=== PATIENT | female | born 1965 | race Caucasian/White ===

== ENCOUNTER → 2019-10-02 13:12 | Outpatient (CLI) | payer OTHER, SELFPAY ==
--- NOTE | 2019-10-02 13:13 | DI.MG.S_ITS ---
BILATERAL DIGITAL SCREENING MAMMOGRAM 3D/2D WITH CAD: 10/02/2019 CLINICAL: Routine screening. Family history of breast cancer. Comparison is made to exams dated: 10/16/2017 mammogram, 06/04/2014 mammogram, and 02/07/2013 mammogram - [facility]. The tissue of both breasts is extremely dense, which lowers the sensitivity of mammography. Current study was also evaluated with a Computer Aided Detection (CAD) system. No significant masses, calcifications, or other findings are seen in either breast. There has been no significant interval change. IMPRESSION: NEGATIVE There is no mammographic evidence of malignancy. A 1 year screening mammogram is recommended. This exam was interpreted at Station ID: [id number]. NOTE: For mammograms, a report in lay terms will be sent to the patient. Approximately 15% of breast malignancies will not be visualized mammographically. In the management of a palpable breast mass, a negative mammogram must not discourage biopsy of a clinically suspicious lesion. Electronically Signed By: Lj liao/bennie:10/02/2019 13:42:00 letter sent: Normal Exam ACR BI-RADS Category 1: Negative 3341F
== END ==
PROVIDERS: PCP Family Medicine; Referring Provider Family Medicine; Visit Provider Family Medicine
DX: Z12.31 Encounter for screening mammogram for malignant neoplasm of breast (principal); Z80.3 Family history of malignant neoplasm of breast
CPT/HCPCS: 77063; 77067

== ENCOUNTER → 2020-06-06 09:58 | Outpatient (CLI) | payer OTHER, SELFPAY ==
[2020-06-06 10:19] LABS: Add Manual Diff / Slide Review NO; Basophils Absolute Auto 0 /uL (0-100); Eosinophils Absolute Auto 100 /uL (0-450); Eosinophils Percent Auto 3.3 % (2-4); Hematocrit 36.1 % (36-46); Hemoglobin 12.4 g/dL (12.0-16.0); Lymphocytes Absolute Auto 1100 /uL (1100-4500); Lymphocytes Percent Auto 28.7 % (25-40); Mean Corpuscular HGB Conc 34.4 % (30-36); Mean Corpuscular Hemoglobin 30.7 PG (26-34); Mean Corpuscular Volume 89.3 fL (80-100); Monocytes Absolute Auto 300 /uL (0-900); Monocytes Percent Auto 8.8 % (3-14); Neutrophils Absolute Auto 2200 /uL (1500-7000); Neutrophils Percent Auto 58.2 % (50-75); Platelet Count 192 X10^3/uL (150-400); Red Blood Cell Count 4.05 X10^6/uL (4.0-5.2); Red Cell Distribution Width 12.8 % (11.6-14.8); White Blood Cell Count 3.8 X10^3/uL (4.5-11.0)
[2020-06-06 10:40] LABS: Alanine Aminotransferase 488 IU/L (<35); Albumin 4.2 g/dL (3.5-5.0); Albumin Globulin Ratio 1.5 (1.0-2.8); Alkaline Phosphatase 117 U/L (38-126); Aspartate Aminotransferase 275 IU/L (14-36); BUN Creatinine Ratio 21.9 (6-22); Bilirubin Total 0.7 mg/dL (0.2-1.3); Blood Urea Nitrogen 16 mg/dL (7-17); Calcium 9.2 mg/dL (8.4-10.2); Carbon Dioxide 30 mmol/L (22-32); Chloride 105 mmol/L (98-107); Cholesterol 189 mg/dL (140-199); Estimated Glomerular Filt Rate > 60.0 mL/min (>60); Globulin 2.8 g/dL (1.7-4.1); Glucose 96 mg/dL (70-100); HDL Cholesterol 45 mg/dL (40-60); HEMOLYSIS < 15 (0-50); LDL Cholesterol Calculated 123 mg/dL (<100); Potassium 4.4 mmol/L (3.4-5.1); Sodium 137 mmol/L (137-145); Triglycerides 106 mg/dL (35-150)
[2020-06-06 11:11] LABS: TSH w/ Reflex to FT4 0.67 uIU/mL (0.47-4.68)
== END ==
PROVIDERS: PCP Family Medicine; Referring Provider Family Medicine; Visit Provider Family Medicine
DX: Z13.220 Encounter for screening for lipoid disorders (principal)
CPT/HCPCS: 36415; 80053; 80061; 84443; 85025

== ENCOUNTER → 2020-06-10 07:42 | Outpatient (CLI) | payer OTHER, SELFPAY ==
--- NOTE | 2020-06-10 07:42 | DI.US.S_ITS ---
PROCEDURE: US ABDOMEN LIMITED INDICATIONS: elevated LFT's TECHNIQUE: Real-time scanning was performed of the abdominal and retroperitoneal organs, with image documentation. COMPARISON: None. FINDINGS: Liver: The liver measures 13.3 cm in length and demonstrates slightly increased echogenicity. Gallbladder: The gallbladder wall measures 8 mm in diameter. No stones, sludge, pericholecystic fluid, or sonographic Jason sign. Biliary ducts: Intrahepatic bile ducts are non-dilated. Extrahepatic bile duct caliber measures 2.5 mm. Normal is 6-7 mm or less in diameter, or 10 mm or less post-cholecystectomy. Pancreas: Visualized portions of the pancreas are sonographically normal. Kidneys: There is a simple 1.6 cm midpole right renal cyst. IMPRESSION: 1. No cholelithiasis or findings to suggest choledocholithiasis or acute cholecystitis. 2. Mildly increased hepatic echogenicity noted likely related to fatty infiltration of the liver but other sources of hepatocellular disease cannot be excluded. Dictated by: Lisy Rico M.D. on 06/10/2020 at 10:34 Approved by: Lisy Rico M.D. on 06/10/2020 at 10:37
== END ==
PROVIDERS: PCP Family Medicine; Referring Provider Family Medicine; Visit Provider Family Medicine
DX: R94.5 Abnormal results of liver function studies (principal)
CPT/HCPCS: 76705

== ENCOUNTER → 2020-06-11 13:27 | Outpatient (CLI) | payer OTHER, SELFPAY ==
[2020-06-11 13:34] LABS: Bacteria Urine None Seen; RBC Urine None Seen (0-5/HPF); WBC Urine None Seen (0-5/HPF)
[2020-06-11 15:44] LABS: Appearance Urine UA CLEAR; Bilirubin Urine UA NEGATIVE (NEGATIVE); Color Urine UA YELLOW; Glucose Urine UA NEGATIVE (Negative); Ketones Urine UA NEGATIVE (NEGATIVE); Leukocyte Esterase Urine UA NEGATIVE (NEGATIVE); Nitrite Urine UA NEGATIVE (Negative); Occult Blood Urine UA TRACE-LYSED (Negative); Protein Urine UA NEGATIVE (Negative); Urobilinogen Urine UA 0.2 E.U./dL (0.2)
[2020-06-11 15:47] LABS: pH Urine UA 6.5 (4.5-8.0)
[2020-06-11 15:49] LABS: Culture Indicated Urine Cult Not Indicated; Urine Comments Microscopic Normal
[2020-06-11 15:50] LABS: C-Reactive Protein Quant < 0.5 mg/dL (<1.0)
[2020-06-11 15:53] LABS: Erythrocyte Sedimentation Rate 10 MM/HR (0-20)
[2020-06-11 16:21] LABS: Ferritin 248 ng/mL (11-264)
[2020-06-12 04:05] LABS: Alpha 1 Anti Trypsin 164 mg/dL (101-187)
[2020-06-12 06:00] LABS: HBsAg Screen Negative (Negative); Hepatitis A Antibody IgM Negative (Negative); Hepatitis B Core Antibody IgM Negative (Negative); Hepatitis C Antibody <0.1 s/co ratio (0.0-0.9)
[2020-06-12 16:07] LABS: ANA Screen, IFA Negative (.)
== END ==
PROVIDERS: PCP Family Medicine; Referring Provider Family Medicine; Visit Provider Family Medicine
DX: B17.9 Acute viral hepatitis, unspecified (principal)
CPT/HCPCS: 36415; 80074; 81001; 82103; 82390; 82728; 85651; 86038; 86140

== ENCOUNTER → 2020-06-23 11:36 | Outpatient (CLI) | payer OTHER, SELFPAY ==
[2020-06-23 13:35] LABS: Alanine Aminotransferase 181 IU/L (<35); Albumin Globulin Ratio 2.1 (1.0-2.8); Alkaline Phosphatase 92 U/L (38-126); Aspartate Aminotransferase 78 IU/L (14-36); Bilirubin Total 0.6 mg/dL (0.2-1.3); Bilirubin Unconjugated 0.6 mg/dL (0.0-1.1); Globulin 1.9 g/dL (1.7-4.1); HEMOLYSIS < 15 (0-50); Total Protein 5.9 g/dL (6.3-8.2)
== END ==
PROVIDERS: PCP Family Medicine; Referring Provider Family Medicine; Visit Provider Family Medicine
DX: R79.89 Other specified abnormal findings of blood chemistry (principal)
CPT/HCPCS: 36415; 80076

== ENCOUNTER → 2020-09-04 13:22 | Outpatient (CLI) | payer OTHER, SELFPAY ==
[2020-09-04 15:12] LABS: Alanine Aminotransferase 74 IU/L (<35); Albumin 4.2 g/dL (3.5-5.0); Albumin Globulin Ratio 1.7 (1.0-2.8); Alkaline Phosphatase 75 U/L (38-126); Aspartate Aminotransferase 73 IU/L (14-36); Bilirubin Total 0.3 mg/dL (0.2-1.3); Bilirubin Unconjugated 0.4 mg/dL (0.0-1.1); Globulin 2.5 g/dL (1.7-4.1); HEMOLYSIS < 15 (0-50); Total Protein 6.7 g/dL (6.3-8.2)
== END ==
PROVIDERS: PCP Family Medicine; Referring Provider Family Medicine; Visit Provider Family Medicine
DX: B17.9 Acute viral hepatitis, unspecified (principal)
CPT/HCPCS: 36415; 80076

== ENCOUNTER → 2020-11-05 16:41 | Outpatient (CLI) | payer OTHER, SELFPAY ==
--- NOTE | 2020-11-05 | DI.MG.S_ITS ---
BILATERAL DIGITAL SCREENING MAMMOGRAM 3D/2D WITH CAD: 11/05/2020 CLINICAL: Routine screening. Family history of breast cancer. Comparison is made to exams dated: 10/02/2019 mammogram, 10/16/2017 mammogram, 06/04/2014 mammogram, and 02/07/2013 mammogram - [facility]. The tissue of both breasts is extremely dense, which lowers the sensitivity of mammography. Current study was also evaluated with a Computer Aided Detection (CAD) system. No significant masses, calcifications, or other findings are seen in either breast. There has been no significant interval change. IMPRESSION: NEGATIVE There is no mammographic evidence of malignancy. A 1 year screening mammogram is recommended. This exam was interpreted at Station ID: [id number]. NOTE: For mammograms, a report in lay terms will be sent to the patient. Approximately 15% of breast malignancies will not be visualized mammographically. In the management of a palpable breast mass, a negative mammogram must not discourage biopsy of a clinically suspicious lesion. Electronically Signed By: Baldomero barekr/bennie:11/05/2020 17:02:06 letter sent: Normal Exam ACR BI-RADS Category 1: Negative 3341F
== END ==
PROVIDERS: PCP Family Medicine; Referring Provider Family Medicine; Visit Provider Family Medicine
DX: Z12.31 Encounter for screening mammogram for malignant neoplasm of breast (principal); Z80.3 Family history of malignant neoplasm of breast
CPT/HCPCS: 77063; 77067

== ENCOUNTER → 2020-11-12 11:01 | Outpatient (CLI) | payer OTHER, SELFPAY ==
[2020-11-12] MEDS: COVID-19 VACC #1, MRNA(MOD) 100 MCG/0.5 ML VIAL IM (11:15)
== END ==
PROVIDERS: PCP Family Medicine; Visit Provider Internal Medicine
DX: Z23 Encounter for immunization (principal)
CPT/HCPCS: 0011A; 91301

== ENCOUNTER → 2020-12-10 10:59 | Outpatient (CLI) | payer OTHER, SELFPAY ==
[2020-12-10] MEDS: COVID-19 VACC #2, MRNA(MOD) 100 MCG/0.5 ML VIAL IM (11:08)
== END ==
PROVIDERS: PCP Family Medicine; Visit Provider Internal Medicine
DX: Z23 Encounter for immunization (principal)
CPT/HCPCS: 0012A; 91301

== ENCOUNTER → 2021-05-03 12:11 | Outpatient (CLI) | payer OTHER, SELFPAY ==
[2021-05-03 13:10] LABS: Alanine Aminotransferase 31 IU/L (<35); Albumin 4.2 g/dL (3.5-5.0); Albumin Globulin Ratio 1.9 (1.0-2.8); Alkaline Phosphatase 71 U/L (38-126); Aspartate Aminotransferase 37 IU/L (14-36); Bilirubin Total 0.5 mg/dL (0.2-1.3); Bilirubin Unconjugated 0.5 mg/dL (0.0-1.1); Globulin 2.2 g/dL (1.7-4.1); HEMOLYSIS < 15 (0-50); Total Protein 6.4 g/dL (6.3-8.2)
== END ==
PROVIDERS: PCP Family Medicine; Referring Provider Family Medicine; Visit Provider Family Medicine
DX: R79.89 Other specified abnormal findings of blood chemistry (principal)
CPT/HCPCS: 36415; 80076

== ENCOUNTER → 2021-07-30 10:27 | Outpatient (CLI) | payer OTHER, SELFPAY ==
--- NOTE | 2021-07-30 10:31 | DI.RAD.S_ITS ---
PROCEDURE: XR HAND RT MIN 3V INDICATIONS: joint pain swelling possible RA TECHNIQUE: 3 views of the hand(s) acquired. COMPARISON: None. FINDINGS: Bones: No fractures or dislocations. Osteoarthritic changes are seen throughout right hand and wrist joints most prominent at radiocarpal joint. No gross bony erosive changes are seen. Carpal bones are normally aligned. No suspicious bony lesions. Soft tissues: No suspicious soft tissue calcifications. IMPRESSION: Osteoarthritic changes throughout right hand and wrist joints. No definite bony erosion is seen. No fracture or dislocation. Dictated by: Yuniel Thomas M.D. on 07/30/2021 at 11:34 Approved by: Yuniel Thomas M.D. on 07/30/2021 at 11:35
--- NOTE | 2021-07-30 10:31 | DI.RAD.S_ITS ---
PROCEDURE: XR HAND LT MIN 3V INDICATIONS: joint pain swelling possible RA TECHNIQUE: 3 views of the hand(s) acquired. COMPARISON: [facility], CR, XR HAND RT MIN 3V, 07/30/2021, 10:34. FINDINGS: Bones: No fractures or dislocations. No osseous erosion seen. Minimal degenerative change in the interphalangeal joints and wrist. Carpal bones are normally aligned. No suspicious bony lesions. Soft tissues: No suspicious soft tissue calcifications. IMPRESSION: No inflammatory arthropathy is identified. No osseous erosions. Minimal degenerative change. Dictated by: Baldomero Wilson M.D. on 07/30/2021 at 12:10 Approved by: Baldomero Wilson M.D. on 07/30/2021 at 12:13
[2021-07-30 12:23] LABS: Add Manual Diff / Slide Review NO; Basophils Absolute Auto 0 /uL (0-100); Basophils Percent Auto 0.6 % (0-2); Eosinophils Absolute Auto 200 /uL (0-450); Eosinophils Percent Auto 3.4 % (2-4); Hematocrit 36.1 % (36-46); Hemoglobin 12.4 g/dL (12.0-16.0); Lymphocytes Absolute Auto 1400 /uL (1100-4500); Mean Corpuscular HGB Conc 34.4 % (30-36); Mean Corpuscular Hemoglobin 30.4 PG (26-34); Mean Corpuscular Volume 88.3 fL (80-100); Monocytes Absolute Auto 400 /uL (0-900); Monocytes Percent Auto 7.8 % (3-14); Neutrophils Absolute Auto 2600 /uL (1500-7000); Neutrophils Percent Auto 57.2 % (50-75); Platelet Count 190 X10^3/uL (150-400); Red Blood Cell Count 4.09 X10^6/uL (4.0-5.2); Red Cell Distribution Width 12.3 % (11.6-14.8); White Blood Cell Count 4.5 X10^3/uL (4.5-11.0)
[2021-07-30 12:49] LABS: Erythrocyte Sedimentation Rate 11 MM/HR (0-20)
[2021-07-30 13:15] LABS: Alanine Aminotransferase 26 IU/L (<35); Albumin 4.1 g/dL (3.5-5.0); Albumin Globulin Ratio 1.7 (1.0-2.8); Alkaline Phosphatase 69 U/L (38-126); Aspartate Aminotransferase 34 IU/L (14-36); Bilirubin Total 0.7 mg/dL (0.2-1.3); Blood Urea Nitrogen 18 mg/dL (7-17); C-Reactive Protein Quant < 0.5 mg/dL (<1.0); Calcium 9.3 mg/dL (8.4-10.2); Carbon Dioxide 30 mmol/L (22-32); Chloride 104 mmol/L (98-107); Cholesterol 192 mg/dL (140-199); Estimated Glomerular Filt Rate > 60.0 mL/min (>60); Globulin 2.4 g/dL (1.7-4.1); Glucose 89 mg/dL (70-100); HDL Cholesterol 50 mg/dL (40-60); HEMOLYSIS < 15 (0-50); LDL Cholesterol Calculated 125 mg/dL (<100); Potassium 4.2 mmol/L (3.4-5.1); Sodium 137 mmol/L (137-145); Total Protein 6.5 g/dL (6.3-8.2); Triglycerides 87 mg/dL (35-150)
[2021-07-30 13:35] LABS: Rheumatoid Factor < 8.6 IU/mL (<12.0)
[2021-07-30 13:46] LABS: TSH w/ Reflex to FT4 0.54 uIU/mL (0.47-4.68)
[2021-08-02 20:22] LABS: CCP Antibodies IgG/IgA 6 units (0-19)
== END ==
PROVIDERS: PCP Family Medicine; Referring Provider Family Medicine; Visit Provider Family Medicine
DX: M25.542 Pain in joints of left hand (principal); M25.541 Pain in joints of right hand; M25.40 Effusion, unspecified joint
CPT/HCPCS: 36415; 73130; 80053; 80061; 84443; 85025; 85651; 86140; 86200; 86430

== ENCOUNTER → 2022-01-05 15:22 | Outpatient (CLI) | payer OTHER, SELFPAY ==
--- NOTE | 2022-01-05 | DI.MG.S_ITS ---
BILATERAL DIGITAL SCREENING MAMMOGRAM 3D/2D WITH CAD: 01/05/2022 CLINICAL: Routine screening. Family history of breast cancer. Comparison is made to exams dated: 11/05/2020 mammogram, 10/02/2019 mammogram, 10/16/2017 mammogram, and 06/04/2014 mammogram - [facility]. The tissue of both breasts is extremely dense, which lowers the sensitivity of mammography. Current study was also evaluated with a Computer Aided Detection (CAD) system. There is a benign calcification in the left breast. There also are benign calcifications in the right breast. No significant masses, calcifications, or other findings are seen in either breast. There has been no significant interval change. IMPRESSION: BENIGN There is no mammographic evidence of malignancy. A 1 year screening mammogram is recommended. This exam was interpreted at Station ID: [id number]. NOTE: For mammograms, a report in lay terms will be sent to the patient. Approximately 15% of breast malignancies will not be visualized mammographically. In the management of a palpable breast mass, a negative mammogram must not discourage biopsy of a clinically suspicious lesion. Electronically Signed By: Baldomero barker/bennie:01/06/2022 07:34:48 letter sent: Normal Exam ACR BI-RADS Category 2: Benign Finding(s) 3342F
== END ==
PROVIDERS: PCP Family Medicine; Referring Provider Family Medicine; Visit Provider Family Medicine
DX: Z12.31 Encounter for screening mammogram for malignant neoplasm of breast (principal); Z80.3 Family history of malignant neoplasm of breast
CPT/HCPCS: 77063; 77067

== ENCOUNTER → 2022-09-24 08:20 | Outpatient (CLI) | payer OTHER, SELFPAY ==
[2022-09-24 08:35] LABS: Add Manual Diff / Slide Review NO; Basophils Absolute Auto 0 /uL (0-100); Basophils Percent Auto 0.7 % (0-2); Eosinophils Absolute Auto 100 /uL (0-450); Hematocrit 37.3 % (36-46); Lymphocytes Absolute Auto 1400 /uL (1100-4500); Lymphocytes Percent Auto 32.7 % (25-40); Mean Corpuscular HGB Conc 34.8 % (30-36); Mean Corpuscular Hemoglobin 30.5 PG (26-34); Mean Corpuscular Volume 87.7 fL (80-100); Monocytes Absolute Auto 300 /uL (0-900); Neutrophils Absolute Auto 2400 /uL (1500-7000); Neutrophils Percent Auto 55.6 % (50-75); Platelet Count 196 X10^3/uL (150-400); Red Blood Cell Count 4.25 X10^6/uL (4.0-5.2); Red Cell Distribution Width 12.4 % (11.6-14.8); White Blood Cell Count 4.3 X10^3/uL (4.5-11.0)
[2022-09-24 08:48] LABS: Alanine Aminotransferase 21 IU/L (<35); Albumin 4.1 g/dL (3.5-5.0); Albumin Globulin Ratio 1.6 (1.0-2.8); Alkaline Phosphatase 69 U/L (38-126); Aspartate Aminotransferase 27 IU/L (14-36); Bilirubin Total 0.9 mg/dL (0.2-1.3); Blood Urea Nitrogen 19 mg/dL (7-17); Calcium 8.8 mg/dL (8.4-10.2); Carbon Dioxide 25 mmol/L (22-32); Chloride 104 mmol/L (98-107); Cholesterol 197 mg/dL (140-199); Estimated Glomerular Filt Rate > 60 mL/min (>60); Globulin 2.5 g/dL (1.7-4.1); Glucose 91 mg/dL (70-100); HDL Cholesterol 57 mg/dL (40-60); HEMOLYSIS < 15 (0-50); LDL Cholesterol Calculated 120 mg/dL (<100); Potassium 4.1 mmol/L (3.4-5.1); Sodium 137 mmol/L (137-145); Total Protein 6.6 g/dL (6.3-8.2); Triglycerides 98 mg/dL (35-150)
== END ==
PROVIDERS: PCP Family Medicine; Referring Provider Family Medicine; Visit Provider Family Medicine
DX: Z00.00 Encounter for general adult medical examination without abnormal findings (principal); R79.89 Other specified abnormal findings of blood chemistry; Z12.11 Encounter for screening for malignant neoplasm of colon; Z12.12 Encounter for screening for malignant neoplasm of rectum; Z13.0 Encounter for screening for diseases of the blood and blood-forming organs and certain disorders involving the immune mechanism; Z13.220 Encounter for screening for lipoid disorders; Z13.29 Encounter for screening for other suspected endocrine disorder
CPT/HCPCS: 36415; 80053; 80061; 84443; 85025

== ENCOUNTER → 2022-09-27 11:33 | Outpatient (CLI) | payer OTHER, SELFPAY ==
[2022-09-28 09:09] LABS: Fecal Immunochemical Test Positive (Negative)
== END ==
PROVIDERS: PCP Family Medicine; Referring Provider Family Medicine; Visit Provider Family Medicine
DX: Z00.00 Encounter for general adult medical examination without abnormal findings (principal); R79.89 Other specified abnormal findings of blood chemistry; Z12.11 Encounter for screening for malignant neoplasm of colon; Z13.0 Encounter for screening for diseases of the blood and blood-forming organs and certain disorders involving the immune mechanism; Z13.220 Encounter for screening for lipoid disorders; Z13.29 Encounter for screening for other suspected endocrine disorder; Z12.12 Encounter for screening for malignant neoplasm of rectum
CPT/HCPCS: 82274

== ENCOUNTER → 2023-01-13 09:45 | Outpatient (CLI) | payer OTHER, SELFPAY ==
--- NOTE | 2023-01-13 09:45 | DI.MG.S_ITS ---
BILATERAL DIGITAL SCREENING MAMMOGRAM 3D/2D WITH CAD: 01/13/2023 CLINICAL: Routine screening. Family history of breast cancer. Comparison is made to exams dated: 01/05/2022 mammogram, 11/05/2020 mammogram, and 10/02/2019 mammogram - [facility]. Both breasts are heterogeneously dense, which may obscure small masses (category c / 51-75% glandular tissue). Current study was also evaluated with a Computer Aided Detection (CAD) system. There is a benign calcification in the left breast. There also are benign calcifications in the right breast. No significant masses, calcifications, or other findings are seen in either breast. There has been no significant interval change. IMPRESSION: BENIGN There is no mammographic evidence of malignancy. A 1 year screening mammogram is recommended. Based on the Tyrer Cuzick model (a risk assessment model) the patient's lifetime risk is 11.6% and her 10 year risk is 4.3%. According to the ACR, ACS, and NCCN guidelines, an annual breast MRI exam along with mammogram is recommended if the patient's lifetime risk is 20% or greater. This exam was interpreted at Station ID: [id number]. NOTE: For mammograms, a report in lay terms will be sent to the patient. Approximately 15% of breast malignancies will not be visualized mammographically. In the management of a palpable breast mass, a negative mammogram must not discourage biopsy of a clinically suspicious lesion. Electronically Signed By: Lj liao/bennie:01/13/2023 17:18:42 letter sent: Normal Exam ACR BI-RADS Category 2: Benign Finding(s) 3342F
== END ==
PROVIDERS: PCP Family Medicine; Referring Provider Family Medicine; Visit Provider Family Medicine
DX: Z12.31 Encounter for screening mammogram for malignant neoplasm of breast (principal); Z80.3 Family history of malignant neoplasm of breast
CPT/HCPCS: 77063; 77067

== ENCOUNTER → 2024-03-04 10:02 | Outpatient (CLI) | payer OTHER, SELFPAY ==
--- NOTE | 2024-03-04 10:03 | DI.MG.S_ITS ---
BILATERAL DIGITAL SCREENING MAMMOGRAM 3D/2D WITH CAD: 03/04/2024 CLINICAL: Routine screening. Family history of breast cancer. Comparison is made to exams dated: 01/13/2023 mammogram, 01/05/2022 mammogram, and 11/05/2020 mammogram - [facility]. Both breasts are heterogeneously dense, which may obscure small masses (category c / 51-75% glandular tissue). Current study was also evaluated with a Computer Aided Detection (CAD) system. No significant masses, calcifications, or other findings are seen in either breast. There has been no significant interval change. IMPRESSION: NEGATIVE There is no mammographic evidence of malignancy. A 1 year screening mammogram is recommended. Based on the Tyrer Cuzick model (a risk assessment model) the patient's lifetime risk is 11.4% and her 10 year risk is 4.4%. According to the ACR, ACS, and NCCN guidelines, an annual breast MRI exam along with mammogram is recommended if the patient's lifetime risk is 20% or greater. This exam was interpreted at Station ID: [id number]. NOTE: For mammograms, a report in lay terms will be sent to the patient. Approximately 15% of breast malignancies will not be visualized mammographically. In the management of a palpable breast mass, a negative mammogram must not discourage biopsy of a clinically suspicious lesion. Electronically Signed By: Lashell finley/bennie:03/04/2024 12:07:53 letter sent: Normal Exam ACR BI-RADS Category 1: Negative 3341F
== END ==
LOC: MAMMO 10:03
PROVIDERS: PCP Family Medicine; Referring Provider Family Medicine; Visit Provider Family Medicine
DX: Z12.31 Encounter for screening mammogram for malignant neoplasm of breast (principal); Z80.3 Family history of malignant neoplasm of breast; R92.333 Mammographic heterogeneous density, bilateral breasts
CPT/HCPCS: 77063; 77067

== ENCOUNTER 2024-04-12 11:28 | Day surgery (SDC) | payer OTHER, SELFPAY ==
[2024-04-12 11:30] VITALS: BP 137/80; PULSE 114; RESP 16; TEMP 37.2; O2SAT 100
[2024-04-12] MEDS: LACTATED RINGERS 1,000 ML 150 ML IV (11:35)
--- NOTE | 2024-04-12 12:34 | PM.HP.1 ---
History of Present Illness History of Present Illness Date Patient Seen: 04/12/24 Time Patient Seen: 12:34 Chief complaint: Colonoscopy Narrative: 58-year-old woman with a positive fecal immunochemical test here for diagnostic colonoscopy. Last colonoscopy 10 years ago normal. No family history of colon cancer. No abdominal concerns today. [facility] Surgical History (Updated 11/21/17 @ 05:44 by Bryan Vines MD) Status post knee surgery Social History marital status: household members: spouse and children Smoking Status: Never smoker alcohol intake: never substance use type: does not use Meds Home Medications and Allergies Home Medications Medication Instructions Recorded Confirmed Type multivitamin (Multiple Vitamins 1 tab PO DAILY 09/29/22 09/29/22 History tablet) sumatriptan succinate 25 mg tablet 25 mg PO DAILY PRN migraine 12/04/23 04/12/24 Rx (Imitrex) headache #10 tabs sumatriptan succinate 50 mg tablet 50 mg PO QDAYP PRN migraine 12/04/23 Rx (Imitrex) headache #10 tabs Allergies Allergy/AdvReac Type Severity Reaction Status Date / Time No Known Drug Allergies Allergy Verified 09/29/22 11:32 Exam Vital Signs (past 8 hours): - 04/12/24 11:30 Temperature 99 F Pulse Rate 114 H Respiratory Rate 16 Blood Pressure 137/80 Pulse Oximetry 100 Oxygen Delivery Method Room Air Oxygen Delivery Method Room Air Narrative Exam Narrative: General adult woman alert oriented no acute distress Chest nonlabored respiration Extremities warm well perfused Assessment & Plan Assessment and plan (1) Positive FIT (fecal immunochemical test): Status: Acute Assessment & Plan narrative: Diagnostic colonoscopy recommended. Technical details were discussed. Risks, benefits, alternatives explained. Risks including but not limited to myocardial infarction, aspiration, bleeding, pain, missed lesion, incomplete examination, need for further radiographic studies, intestinal injury, and need for major abdominal surgery were discussed. All questions were answered to their satisfaction, and they are in agreement with this plan. Time-Based Coding :: [TOTAL MINUTES] spent with patient and on the chart (including review of chart, obtaining history, exam, reviewing outside data, placing orders, documenting exam and treatment plan, and counseling patient) on [DATE].
--- NOTE | 2024-04-12 12:36 | P.OP.COLON_ITS ---
Operative Date/Time/Diagnoses Date of procedure: 04/12/24 Time of procedure: 12:36 Pre-op diagnosis: Positive fecal immunochemical test Procedure & Clinicians Study performed: Diagnostic colonoscopy Same procedure as scheduled: Yes Indications: Positive fecal immunochemical depth Surgeon: Tor Hummel Procedure Notes Procedure in detail: The history and physical was performed/updated and the patient is ASA class is 2. The procedure was discussed in detail with the patient. Potential risks complications including infection, bleeding, missed diagnosis, perforation, need for surgery, and were explained. Their questions were answered and informed consent was obtained. Patient was brought to the procedure room and placed standard monitoring equipment. The patient's vital signs were monitored continuously throughout the entire procedure. Prior to starting time-out was performed. The patient was placed in the left lateral recumbent position. Procedural sedation was administered by anesthesia. Examination began with a thorough inspection of the perianal area there was no evidence of fissures, fistulae, external hemorrhoids or cutaneous malignancy. The colonoscopy scope was then placed into the anal canal and was advanced to the cecum, which was identified by the ileocecal valve, the appendiceal orifice and the confluence of the taenia. The scope was then slowly withdrawn examining colon thoroughly in all directions, irrigating it of any residual stool. The scope was retroflexed within the rectum The patient tolerated the procedure well. They will be discharged once criteria are met. The prep was of good/excellent quality. The withdrawl time was 8 minutes. FINDINGS * Internal hemorrhoids * No mass polyps or inflammation. Specimen(s): none sent Impression: Internal hemorrhoids Post-procedure Recommendations: Colonoscopy in 10 years Disposition: same day surgery
[2024-04-12 12:55] VITALS: BP 87/50; PULSE 77; RESP 10; TEMP 36.3; O2SAT 95
[2024-04-12 13:00] VITALS: BP 93/56; PULSE 76; RESP 13; O2SAT 95
[2024-04-12 13:05] VITALS: BP 94/66; PULSE 76; RESP 14; O2SAT 100
[2024-04-12 13:06] VITALS: BP 100/59; PULSE 72; RESP 14; TEMP 36.3; O2SAT 98
== END 2024-04-12 13:35 | disposition home or self-care (01) ==
PROVIDERS: PCP Family Medicine; Referring Provider Surgery; Visit Provider Surgery
PROC: 0DJD8ZZ Inspection of Lower Intestinal Tract, Via Natural or Artificial Opening Endoscopic (ICD-10-PCS; CPT 45378; principal; 2024-04-12 12:30)
DX: Z12.11 Encounter for screening for malignant neoplasm of colon (principal); R19.5 Other fecal abnormalities; K64.8 Other hemorrhoids
CPT/HCPCS: 45378; J2704

== ENCOUNTER → 2024-07-06 08:48 | Outpatient (CLI) | payer OTHER, SELFPAY ==
[2024-07-06 09:18] LABS: Add Manual Diff / Slide Review NO; Basophils Absolute Auto 0 /uL (0-100); Basophils Percent Auto 0.4 % (0-2); Eosinophils Absolute Auto 200 /uL (0-450); Eosinophils Percent Auto 5.3 % (2-4); Hematocrit 37.5 % (36-46); Hemoglobin 13.2 g/dL (12.0-16.0); Lymphocytes Absolute Auto 1400 /uL (1100-4500); Lymphocytes Percent Auto 33.1 % (25-40); Mean Corpuscular HGB Conc 35.3 % (30-36); Mean Corpuscular Hemoglobin 31.3 PG (26-34); Mean Corpuscular Volume 88.6 fL (80-100); Monocytes Absolute Auto 300 /uL (0-900); Monocytes Percent Auto 6.6 % (3-14); Neutrophils Absolute Auto 2400 /uL (1500-7000); Neutrophils Percent Auto 54.6 % (50-75); Platelet Count 217 X10^3/uL (150-400); Red Blood Cell Count 4.23 X10^6/uL (4.0-5.2); Red Cell Distribution Width 12.6 % (11.6-14.8); White Blood Cell Count 4.3 X10^3/uL (4.5-11.0)
[2024-07-06 09:32] LABS: Alanine Aminotransferase 20 IU/L (<35); Albumin 4.1 g/dL (3.5-5.0); Albumin Globulin Ratio 1.7 (1.0-2.8); Alkaline Phosphatase 72 U/L (38-126); Aspartate Aminotransferase 28 IU/L (14-36); BUN Creatinine Ratio 28.4 (6-22); Bilirubin Total 0.7 mg/dL (0.2-1.3); Blood Urea Nitrogen 21 mg/dL (7-17); Calcium 9.1 mg/dL (8.4-10.2); Carbon Dioxide 25 mmol/L (22-32); Chloride 107 mmol/L (98-107); Cholesterol 202 mg/dL (140-199); Estimated Glomerular Filt Rate > 60 mL/min (>60); Globulin 2.4 g/dL (1.7-4.1); Glucose 96 mg/dL (70-100); HDL Cholesterol 56 mg/dL (40-60); HEMOLYSIS < 15 (0-50); LDL Cholesterol Calculated 125 mg/dL (<100); Potassium 3.9 mmol/L (3.4-5.1); Sodium 138 mmol/L (137-145); Total Protein 6.5 g/dL (6.3-8.2); Triglycerides 106 mg/dL (35-150)
[2024-07-06 10:01] LABS: TSH w/ Reflex to FT4 0.79 uIU/mL (0.47-4.68)
== END ==
PROVIDERS: PCP Family Medicine; Referring Provider Family Medicine; Visit Provider Family Medicine
DX: Z00.00 Encounter for general adult medical examination without abnormal findings (principal); Z13.220 Encounter for screening for lipoid disorders; Z78.0 Asymptomatic menopausal state
CPT/HCPCS: 36415; 80053; 80061; 84443; 85025

== ENCOUNTER → 2024-10-07 18:53 | Outpatient (ROUT) | payer OTHER, SELFPAY ==
[2024-10-07 19:05] LABS: Appearance Urine UA CLEAR; Bilirubin Urine UA NEGATIVE (NEGATIVE); Color Urine UA YELLOW; Glucose Urine UA NEGATIVE (Negative); Ketones Urine UA NEGATIVE (NEGATIVE); Leukocyte Esterase Urine UA NEGATIVE (NEGATIVE); Nitrite Urine UA NEGATIVE (Negative); Occult Blood Urine UA TRACE-INTACT (Negative); Protein Urine UA NEGATIVE (Negative); Urobilinogen Urine UA 0.2 E.U./dL (0.2)
[2024-10-07 19:11] LABS: Amorphous Sediment Urine 2+; Bacteria Urine None Seen; RBC Urine 1-5/HPF (0-5/HPF); Squamous Epithelial Cell Urine None Seen (0-5/HPF); Transitional Epi Cells Urine None Seen (0-5/HPF); Urine Volume 10mL (spun); WBC Urine 0-1/HPF (0-5/HPF)
[2024-10-07 19:12] LABS: Culture Indicated Urine Cult Not Indicated
== END ==
PROVIDERS: PCP Family Medicine; Visit Provider Obstetrics & Gynecology Gynecology
DX: N81.10 Cystocele, unspecified (principal)
CPT/HCPCS: 81001

== ENCOUNTER 2024-11-28 13:36 | Day surgery (SDC) | payer OTHER, SELFPAY ==
--- NOTE | 2024-11-13 17:11 | PM.GYNHP.1 ---
History of Present Illness History of Present Illness Narrative: Mariah Thomas is a 58 year old female Date of procedure:?? November 28, 2024 Preoperative diagnosis:? cystocele uterine prolapse urethral hypermobility, at risk of stress incontinence Planned Procedure:?? TVH, USVS, Ant repair, possible mid urethral sling She is at risk for postoperative stress incontinence from the prolapse repair. Will plan to diagnose stress incontinence intraoperatively by filling the bladder with 200-300 cc of fluid and then using a crede maneuver to see if there is leakage of fluid from the urethra. If there is leakage, then stress incontinence will be diagnosed, and she will be treated with a mid urethral sling. ibuprofen 600 mg PO TID 30 tabs 2RF postop pain acetaminophen 1,000 mg (2 x 500 mg) PO TID 30 caps 2RF docusate sodium (Colace) 100 mg PO BID 30 caps 2RF oxycodone 5 mg PO Q6H PRN 15 tabs 0RF postop pain ondansetron HCl 4 - 8 mg (1 - 2 x 4 mg) PO Q8H 4 days PRN 20 tabs 2RF nausea and vomiting CC: Vaginal bulge HPI:??58-year-old female who presents for evaluation of above complaint.?? She reports onset of symptoms over 1 year ago.?? She considers this a? Moderate? problem. She is referred for vaginal prolapse that she is considering surgery for. She reports a vaginal bulge, size of an egg, with symptoms of bulge, heaviness, pressure. She does not experience difficulty emptying her bladder or her bowels, and no splinting as needed. She does report discomfort with sex that she thinks might be related to the prolapse. We discussed treatment options including observation, pessary, surgery. She prefers surgery. Exam demonstrates a stage III prolapse, primarily cystocele and uterus She denies stress incontinence but does report occasional urge incontinence about once a week, small leaks, occasionally a full bladder. She has associated overactive bladder symptoms, with a need to void every 30-60 minutes, nocturia times 0-1, with mild urgency. After an hour, if she is unable to use the toilet, she gets increasing urgency, but no pain or urinary leaking. Currently she limits her fluids to cope with these symptoms. She has not tried overactive bladder anticholinergic medication. She reports also changes in arousal and in sex drive. Not currently using any hormone replacement. Exam demonstrates vulvar vaginal atrophy, that is likely to benefit with vaginal estrogen, prescription ordered. prior hyst -0 ? -9, 1 with forceps c-sec? -0 ? Pelvic Floor Review of Systems: (HPI) Stress Urinary Incontinence symptoms (NEETA):??0 Triggers include:? Urge Incontinence symptoms (Urge UI):??Once a week Triggers include:??Full bladder with urge ? Pads: She wears 0 Overactive Bladder symptoms (OAB):? ? Frequency:??30-60 minute Nocturia:??0-1? Urgency:??Mild Prior incontinence treatment includes:? Medical:??Now ? Surgical:? No ? Kegels:?? Yes Physical therapy:?No? Pessary:?No? Diet / Fluids: Fluid restriction:? No Excessive fluids:?No Pain symptoms:? Painful bladder:???No Dysuria:???No Dyspareunia:??VS Dysmenorrhea:? No Urinary Risk Factors UTI?s, recurrent:??No Hematuria:? No Kidney Stones:?No? Tobacco use:? No Pelvic Organ Prolapse (POP) symptoms:?? Bulge:??Yes Pressure and /or? Heaviness:??Yes Splint for defecation or voiding:??No Voiding dysfunction: Abnormal stream:?No Strain to void:? No Incomplete emptying:?No Voiding difficulty:?No Retention:??? No Bowel Function: Constipation:??No? Strain to defecate:??No Fiber:??No Laxatives:??No Fecal Incontinence:? Liquid stool:? No Solid stool:?No?? Sexually active:??Yes Incontinence with sex:? No ? UroGyn ROS ROS Narrative ROS Narrative: General Review of Systems: Constitutional, CV, Endo, Musc-skel, Eyes, Cancer, Skin, Breast, GI, Heme/Lymph, Psych, Urinary, Neuro, Mat Tester, Resp, Sexual:??? Pertinent positives listed above in HPI All others reviewed and negative. All reviewed on patient questionnaire.? . . [facility] Medical History (Updated 10/07/24 @ 17:31 by Yoan Roy MD) OAB (overactive bladder) Vaginal atrophy Uterine prolapse Cystocele, midline Surgical History (Updated 11/21/17 @ 05:44 by Bryan Vines MD) Status post knee surgery Social History marital status: household members: spouse and children Tobacco & Substance Use Smoking Status: Never smoker alcohol intake: never substance use type: does not use UroGyn Exam UroGyn Exam UroGyn Exam Narrative: General: healthy, alert, coherent, no acute distress, cooperative, nontoxic Pulmonary: normal breathing, no distress Abdomen: soft, no mass, non-distended, no hernia, non-tender Vulva: There is vulvar vaginal atrophy with pale color to the skin around the introitus and into the vagina. Otherwise, Normal labia majora, labia minora, introitus, and clitoris, non-tender Urethra meatus: normal, no discharge Perineum: Normal, non-tender Urethra: No mass, non-tender Bladder: no mass, non-tender Vagina: No lesions, no discharge, moderate atrophy, non-tender Prolapse stage III cystocele, stage II uterus. mild rectocele Levators: Non-tender, 3-4/ 5 kegel squeeze Cervix: Normal, No lesions, no discharge, non-tender Uterus: normal size, non-tender Bimanual: no mass, no adnexal mass, non-tender Anus: No lesion, non-tender, no hemorrhoid Rectum: No mass, normal sphincter tone, Empty Cough Stress test: Neg PVR: 70 mL by catheter Urethral angle hypermobile: Yes Pelvic Organ Prolapse: Yes POP-Q Exam: Aa: 0 Ba: +2 Ap: -1.5 Bp: -1.5 C: -1 D: -5 TVL: 9 GH: 3 PB: 3 Introitus size: 2 fingerbreadths Cystocele stage: 3 Rectocele stage: 1 Uterine/Vault Prolapse Stage: Stage II Office Procedures Informed consent given: Yes Residual: post void Complications: No Billing- Post Void Residual by Catheter: PVR Catheter - [id number] Assessment & Plan (1) Cystocele, midline: Status: Acute (2) Uterine prolapse: Status: Acute (3) Vaginal atrophy: Status: Acute (4) OAB (overactive bladder): Status: Acute Medications: New estradiol 0.01%(0.1mg/gram) (Estrace) apply 1 gm to vagina 3 nights a week. OK to use indefinitely. 1 g vaginal 3XW 42.5 grams 6RF N95.2 - Postmenopausal atrophic vaginitis Orders: Orders Urinalysis and Microscopic Today N81.10 - Cystocele, unspecified Time Spent Time Coding Minutes Spent: (must be on same date of service/appointment) Assessment and Plan ? Patient counseled regarding above conditions.? Educational materials given to patient. 1. Pelvic Organ Prolapse - Stage 3 cystocele, stage 2 uterus, mild rectocele This diagnosis and its etiology was discussed with the patient.? Treatment options were discussed including: expectant management, pessary trial, and surgical intervention. We briefly discussed risks and benefits of surgery. All surgery for prolapse is not 100% successful and there is a chance of recurrence or failure. She declines a Pessary Trial for Prolapse she desires surgery my recommendation = TVH, USVS, Ant repair, possible sling see below for counseling 2. Stress Urinary Incontinence with urethral hypermobility :? This diagnosis was discussed with the patient. The etiology was explained. Treatment options were discussed including expectant management, pelvic floor exercises, pessary trial, and surgical intervention (mid-urethral sling, Gentile urethropexy, P-V sling, Emily urethral plication, urethral bulking injection).? Risks and benefits of surgery were briefly outlined. currently with no NEETA sx however, at risk for postop NEETA / occult NEETA We will schedule her for urodynamic bladder testing to determine whether or not she has stress incontinence. If yes then will do a mid urethral sling with her prolapse repair. She prefers to have any stress urinary incontinence treated with her prolapse repair 3. Overactive bladder and urge incontinence.?? This diagnosis and its etiology was discussed with the patient.? Treatment options were discussed including: Behavior changes ( Limit fluid intake, Avoiding fluid intake 3 hours before bedtime, Avoiding bladder irritants / follow bladder diet, Bladder training exercises), Kegel / pelvic floor muscle exercises,? OAB Medications, and procedures to include:? bladder botox A injections, Interstim, and PTNS.?? No OAB med treatment for now, will follow for now, suspect related to her POP 4. She has vaginal atrophy, with associated vaginal dryness and dyspareunia. - She is interested in using ERT.? Options include topical or systemic estrogen - Vaginal estrogen can be offered to almost every single post-menopausal female, as it is topical (as opposed to systemic estrogen, as listed below).? It will not cause uterine or breast cancer.? A recent RCT study (late 2023) demonstrated that vaginal estrogen is safe to use in women with Breast cancer, even if their cancer has ?+ estrogen receptors? (this was previously controversial).? Vaginal estrogen options below. a.? Vaginal Estrogen Cream:? apply with finger or applicator, 2-3 times a week (Estrace cream,? Premarin cream,? compounded estrogen cream) b.? Vaginal Estrogen Tablet? (Vagifem):? insert 2 times a week c.? Estring (vaginal ring device):? insert into vagina, replace every 3 months - Systemic Estrogen has the above vaginal health benefits, and will also treat hot flashes, and reduce osteoporosis, but has side effects to include increased blood clots, increased uterine cancer, and cannot be used in women with breast cancer if their cancer has ?+ estrogen receptors?.? Generally it is OK to start using within 10 years of menopause. Starting systemic estrogen after this time has increased risks of heart attack or stroke. Systemic estrogen includes oral estrogen and transdermal estrogen patch / skin gel.? Osphena is a newer drug called a selective estrogen receptor modulator (SERM), and has beneficial estrogen effects on vagina and bones, with anti-estrogen effects on breast, uterus, blood clots.? Whereas vaginal estrogen is nearly universally safe, patients need more counseling prior to using systemic estrogen or SERM?s. Low dose vaginal estrogen cream (or estring or vagifem estrogen tablets) does not cause heart attack or stroke or cancer, but also will not treat hot flashes or osteoporosis, because the dose is much less than the systemic dose typically used. Recommend that she use about 1/4? inch by fingertip to the vaginal opening / urethra / lower vagina, and also about 1 gm (1/4 applicator) to be inserted into the upper vagina, 3 nights a week?? (This is about 10% of the typical oral dose for Estrogen Replacement Therapy).? As symptoms improve, the estrogen cream can be decreased to 2 nights a week, and used indefinitely.?? Vitals 11/14/2515:00 Height 5 ft 6 in Weight 145 lb BMI 23.3 BP 128/80 Blood Pressure Location Lt brachial Position Sitting Pulse 66 Pulse Source Monitor Temp 97.9 F Temp Source Temporal Artery Scan Pulse Oximetry (%) 99 Oxygen Delivery Method room air Intake Intake - Clinical Staff Intake performed by: Jermain Tao Reason For Visit Visit Reasons: Pre Op Intake Note: Pt is here for pre op appt Tobacco Status Smoking Status: Never smoker Last Menstrual Cycle & Details Other Menstrual Period: Postmenopausal Allergies No Known Drug Allergies Allergy (Verified 11/13/24 16:02) Medications multivitamin (Multiple Vitamins tablet) 1 tab PO DAILY 09/29/22 [History Confirmed 11/13/24] promethazine 25 mg tablet 25 mg PO .QD PRN nausea and vomiting #10 tabs 07/08/24 [Rx Confirmed 11/13/24] sumatriptan succinate 25 mg tablet (Imitrex) 25 mg PO DAILY PRN migraine headache #10 tabs 07/08/24 [Rx Confirmed 11/13/24] sumatriptan succinate 50 mg tablet (Imitrex) 50 mg PO QDAYP PRN migraine headache #10 tabs 07/08/24 [Rx Confirmed 11/13/24] estradiol 0.01% (0.1 mg/gram) vaginal cream (Estrace) 1 g vaginal 3XW #42.5 grams 10/07/24 [Rx Confirmed 11/13/24] acetaminophen 500 mg capsule 1,000 mg (2 x 500 mg) PO TID #30 caps 11/13/24 [Rx Confirmed 11/13/24] docusate sodium 100 mg capsule (Colace) 100 mg PO BID #30 caps 11/13/24 [Rx Confirmed 11/13/24] ibuprofen 600 mg tablet 600 mg PO TID postop pain #30 tabs 11/13/24 [Rx Confirmed 11/13/24] ondansetron HCl 4 mg tablet 4 - 8 mg (1 - 2 x 4 mg) PO Q8H PRN nausea and vomiting 4 days #20 tabs 11/13/24 [Rx Confirmed 11/13/24] oxycodone 5 mg tablet 5 mg PO Q6H PRN postop pain #15 tabs 11/13/24 [Rx Confirmed 11/13/24] UroGyn HPI UroGyn HPI UroGyn HPI Narrative: Surgical Counselling Note Patient seen for surgical counselling.? She desires surgical repair. Please see? H & P for exam and discussion. Date of procedure:?? November 28, 2024 Preoperative diagnosis:? cystocele uterine prolapse urethral hypermobility, at risk of stress incontinence Planned Procedure:?? TVH, USVS, Ant repair, possible mid urethral sling She is at risk for postoperative stress incontinence from the prolapse repair. Will plan to diagnose stress incontinence intraoperatively by filling the bladder with 200-300 cc of fluid and then using a crede maneuver to see if there is leakage of fluid from the urethra. If there is leakage, then stress incontinence will be diagnosed, and she will be treated with a mid urethral sling. Postop Meds: tylenol 1000 motrin 600 colace oxycodone 5 mg #15 zofran 4-8 mg prn Patient counseled extensively about the Risks, Benefits, and Alternatives to surgery.? She was offered the opportunity to ask any questions, and all questions were answered. ? Surgical Risks include: Bleeding, Hemorrhage, Transfusion, Infection (especially wound or bladder), Injury to adjacent organs (especially bladder, ureter, bowel, blood vessels, nerves), Postop or Chronic Pain, need for Reoperation, and Life-threatening event (especially M.I., CVA, PE, DVT). Procedure Risks include: Failure to Cure condition, Recurrence of condition months or years later, Urinary incontinence, Voiding dysfunction or Urinary Retention with prolonged catheter use, Poor wound healing, Erosions of any mesh or graft used, Dyspareunia, Vaginal scarring or narrowing, Need for additional surgery (immediate or delayed).? The expected cure and improvement and failure rates were discussed. Patient counseled to avoid the following for 6 weeks after surgery: (1) Impact sports (like running or jumping), walking and stairs OK (2) Lifting over 20# (3) Sexual intercourse No limits after 6 weeks. ? Good exercise tolerance, > 4 Mets. Her current medications were reviewed, and instructions given over which to use and which to discontinue before surgery.? Post-operative care instructions reviewed.? We discussed post-operative pain: Pain should be in the mild-moderate range, but can be moderate-severe for the first few days.?? Prescriptions will typically be given for (1) acetaminophen (Tylenol) and (2) non-steroidal anti-inflammatory drug (NSAID, like Motrin or Naprosyn), use both together, around the clock. Prescription will also be given for a (3) narcotic pain medication. Use the narcotic as needed, as a booster to the Tylenol and NSAID. You might need 0-4 narcotic pills a day typically. The narcotic will only be needed for a few days.?? Gradually use less of the narcotic, but continue the Tylenol and NSAID.? After a few days, the narcotic should no longer be needed, and only the Tylenol and NSAID will be needed.? Warm packs or cold packs can also be used for pain.??Do not drive for as long as you are using the narcotic pain medication? - this should only be a few days.?? Constipation is associated with use of narcotic pain medications, and can be improved with use of a stool softener, or fiber, or a mild laxative.? All of her questions were answered and then the consent was signed at the end of the office visit.? Patient sent for labs and her preadmission appointment. Yoan Roy MD UroGynecology & Pelvic Reconstructive Surgery [place], [place] UroGyn HPI Additional: [facility] Medical History (Updated 11/13/24 @ 16:58 by oYan Roy MD) Urethral hypermobility OAB (overactive bladder) Vaginal atrophy Uterine prolapse Cystocele, midline Surgical History (Updated 11/21/17 @ 05:44 by Bryan Vines MD) Status post knee surgery Social History marital status: household members: spouse and children Tobacco & Substance Use Smoking Status: Never smoker alcohol intake: never substance use type: does not use Assessment & Plan (1) Cystocele, midline: Status: Acute (2) Uterine prolapse: Status: Acute (3) Urethral hypermobility: Status: Acute Medications: New ibuprofen 600 mg PO TID 30 tabs 2RF postop pain acetaminophen 1,000 mg (2 x 500 mg) PO TID 30 caps 2RF docusate sodium (Colace) 100 mg PO BID 30 caps 2RF oxycodone 5 mg PO Q6H PRN 15 tabs 0RF postop pain ondansetron HCl 4 - 8 mg (1 - 2 x 4 mg) PO Q8H 4 days PRN 20 tabs 2RF nausea and vomiting PFSH Medical History (Updated 11/13/24 @ 16:58 by Yoan Roy MD) Urethral hypermobility OAB (overactive bladder) Vaginal atrophy Uterine prolapse Cystocele, midline Surgical History (Updated 11/21/17 @ 05:44 by Bryan Vinse MD) Status post knee surgery Social History marital status: household members: spouse and children Smoking Status: Never smoker alcohol intake: never substance use type: does not use Meds Home Medications and Allergies Home Medications Medication Instructions Recorded Confirmed Type multivitamin (Multiple Vitamins 1 tab PO DAILY 09/29/22 11/13/24 History tablet) promethazine 25 mg tablet 25 mg PO .QD PRN nausea and 07/08/24 11/13/24 Rx vomiting #10 tabs sumatriptan succinate 25 mg tablet 25 mg PO DAILY PRN migraine 07/08/24 11/13/24 Rx (Imitrex) headache #10 tabs sumatriptan succinate 50 mg tablet 50 mg PO QDAYP PRN migraine 07/08/24 11/13/24 Rx (Imitrex) headache #10 tabs estradiol 0.01% (0.1 mg/gram) 1 g vaginal 3XW #42.5 grams 10/07/24 11/13/24 Rx vaginal cream (Estrace) acetaminophen 500 mg capsule 1,000 mg (2 x 500 mg) PO TID #30 11/13/24 11/13/24 Rx caps docusate sodium 100 mg capsule 100 mg PO BID #30 caps 11/13/24 11/13/24 Rx (Colace) ibuprofen 600 mg tablet 600 mg PO TID postop pain #30 tabs 11/13/24 11/13/24 Rx ondansetron HCl 4 mg tablet 4 - 8 mg (1 - 2 x 4 mg) PO Q8H PRN 11/13/24 11/13/24 Rx nausea and vomiting 4 days #20 tabs oxycodone 5 mg tablet 5 mg PO Q6H PRN postop pain #15 11/13/24 11/13/24 Rx tabs Allergies Allergy/AdvReac Type Severity Reaction Status Date / Time No Known Drug Allergies Allergy Verified 11/13/24 16:02 Assessment & Plan Time-Based Coding :: [TOTAL MINUTES] spent with patient and on the chart (including review of chart, obtaining history, exam, reviewing outside data, placing orders, documenting exam and treatment plan, and counseling patient) on [DATE].
[2024-11-21 12:40] VITALS: BMI 23.3
[2024-11-28] VITALS (15 sets, daily range): BP systolic 86–125; BP diastolic 42–59; PULSE 54–87; RESP 10–18; TEMP 36–36.6; O2SAT 96–100; BMI 23.8; BMI 24.9
--- NOTE | 2024-11-28 | PATH_ITS ---
[facility] Accession Number: [id number] No. of containers..01 Tissue . 01 Material submitted: . uterus - CERVIX,UTERUS, RIGHT FALLOPIAN TUBE . 01 Diagnosis: CERVIX, UTERUS, RIGHT FALLOPIAN TUBE, VAGINAL HYSTERECTOMY AND RIGHT SALPINGECTOMY (WEIGHT 62 GRAMS): Cervix with focal cytologic atypia suggestive of, but not diagnostic of, low-grade squamous intraepithelial lesion / MARIA G-1. Endocervix with no significant histomorphologic abnormality. Disordered proliferative endometrium; negative for endometrioid intraepithelial neoplasia or malignancy. Myometrium with no significant histomorphologic abnormality. Uterine serosa with no significant histomorphologic abnormality. Fallopian tube, complete cross-sections, with benign paratubal cysts (up to 7 mm); negative for significant atypia. [facility] 12/03/2024 1400 Local . 01 Electronically signed: . Silvia Blake MD, Pathologist NPI- [id number] . 01 Gross description: . Received in formalin with two identifiers and cervix, uterus, right fallopian tube, is an intact uterus (62 grams, 7.2 cm superior to inferior, 5.6 cm medial to lateral, and 3.1 cm anterior to posterior) with attached cervix (4.4 x 4.2 cm), and single detached fimbriated fallopian tube (4.8 x 0.5 cm), with no additional adnexa. . The ectocervix is elaine and wrinkled with a patulous os 1.0 cm in diameter. The anterior paracervical margin is inked blue while the posterior paracervical margin is inked black. The serosa is elaine and smooth with no evidence of hemorrhage or adhesion identified. . The endocervical canal has elaine herringbone mucosa and measures 2.3 cm in length. The endometrial cavity is 2.6 cm from cornu to cornu and 4.2 cm in length with pink-elaine, velvety endometrium and a elaine soft mucosal nodule 0.8 x 0.7 x 0.4 cm. The endometrium averages 0.1 cm thick. The myometrium is elaine and measures up to 1.4 cm in maximum thickness with no nodules or lesions identified. . The fallopian tube has elaine smooth serosa and multiple cystic structures up to 0.7 cm in greatest dimension filled with elaine serous fluid. The lumen is stellate and unremarkable. [place] sections are submitted as follows: . A1: Anterior cervix. A2: Posterior cervix. A3: Anterior full thickness section. A4: Posterior full thickness section with mucosal nodule. A5: Fallopian tube to include one-half of bisected fimbria and cross-sections. ([id number]) /MRV 11/29/2024 1552 Local . 01 Pathologist provided ICD-10: N81.11, N81.4 . 01 CPT . 414150 Specimen Comment: A courtesy copy of this report has been sent to [facility] Pathology Performed at: [address] [address], [place], [place] [id number] MD Stephen Murray MD Phone: [phone]
[2024-11-28] MEDS: SCOPOLAMINE 1 PATCH TOP (14:01)
[2024-11-28] MEDS: LACTATED RINGERS 1,000 ML 42 ML IV ×3 (14:02→18:47)
[2024-11-28] MEDS: CEFAZOLIN 2 GM/100 ML PREMIX 100 ML IV (15:01)
--- NOTE | 2024-11-28 15:03 | SUR.OPER ---
Lithotomy on padded OR bed. [place] Pad Positioner under torso. Head on pillow, arms padded and resting on padded arm boards. Legs secured in padded yellow fins stirrups.
[2024-11-28] MEDS: LIDOCAINE 1% W/EPI 10ML 20 ML INJ (15:41)
--- NOTE | 2024-11-28 17:59 | PM.GYNOP.1 ---
Operative Date/Time/Diagnoses Date of procedure: 11/28/24 Time of procedure: 15:00 Pre-op diagnosis: cystocele, uterine prolapse Post-op diagnosis: same Procedure & Clinicians Procedure: Procedures Operation Date: 11/28/24 15:00 Actual Procedure Side Surgeon p Total Vaginal Hysterectomy with Right Salpingectomy, ureterosacral vault suspension, with anterior repair Yoan Roy MD s Anterior Repair Yoan Roy MD Operative Notes Findings: Operative Note Surgeon:? Yoan Roy MD Coverage Specialist Rn:??Deng Andre MD Pre-Op Diagnosis:?? Uterine prolapse, cystocele, Post-Op Diagnosis:?? Same? Procedure:?? Vaginal hysterectomy, right salpingectomy, uterosacral ligament vaginal vault suspension, anterior colporrhaphy, cystoscopy Findings (brief): ? 1.? EUA with POP as noted on preop exam. Normal size uterus, tubes, ovaries.?? TVH in usual fashion.?? The right fallopian tube was removed to prevent future fallopian tube cancer. There was more bleeding than expected. About 100 cc. So the decision was made not to do the similar step on the left side. So only the right side was removed. ? 2.? USVS with 2 sutures of 0-PDS on each side.? Excellent apical support when done.? Cystoscopy with bilateral ureteral jets noted.? 3.? Anterior colporrhaphy in usual fashion. Midline bladder plication with running 2-0 Vicryl, and then 3 horizontal mattress sutures of 2-0 Vicryl. ? 4.? Cystoscopy with normal bladder, urethra, ureters. The bladder was filled to 300 cc and a Crede maneuver was done to determine if there was leakage of fluid through the urethra. There was no leakage. Therefore there was no stress incontinence. Therefore there was no indication for a mid urethral sling. Date of Surgery:? November 28, 2024 Complications:? No Specimens:? Cervix, uterus, right fallopian tube Anesthesia Technique:??General endotracheal Estimated Blood Loss (mls):? 150 cc Blood Replacement (mls):? None Drains:? Simms catheterization Condition:? Stable Procedure in detail: After consent was confirmed, the patient was taken to the operating room and placed under general anesthesia without incident.? Sequential compression devices were in place and active.? She received perioperative antibiotics.? She was then prepped and draped in the usual sterile fashion after placement in the dorsal lithotomy position using the Joey stirrups.? A Simms catheter was placed.? A weighted speculum was placed in the vagina and the cervix was grasped with a tenaculum. The cervix was circumferentially injected with 20 cc of 0.5% lidocaine / epinephrine 1:200,000. A circumferential incision was made with electrocautery through the vaginal mucosa and carried down to the underlying cervical stroma. The posterior peritoneum was entered sharply and a retractor was placed. Curved Amber clamps and 0-vicryl sutures were used. The uterosacral ligaments were clamped, cut, and ligated bilaterally, and then tagged for use later in the case. The anterior peritoneum entered sharply, and a simms catheter was placed.? The cardinal ligaments were clamped, cut, and ligated bilaterally. The uterine vessels were clamped, cut, and ligated bilaterally. The broad ligaments were clamped, cut, and ligated bilaterally. The utero-ovarian ligaments were clamped, cut, and ligated bilaterally, and the cervix and uterus were removed. The right adnexa was then inspected and found to be normal. The right adnexa was grasped with a Casper clamp and electrocautery was used to excise the right fallopian tube. As noted above, there is more bleeding than expected on the right fallopian tube excision, so decision made not to remove the left side. Inspection of all pedicles was completed and hemostatis was assured. ? A large laparotomy surgical sponge was placed into the pelvis and a [place] retractor was used to elevate the sponge and bowel to expose the pelvic sidewalls and utero-sacral ligaments.? Tension was placed on the previously tagged left Utero-Sacral ligament, and 2 sutures of 0-PDS were placed through the U-S ligament, just above the ischial spine, and tagged for use later.? The same procedure was done on the right U-S ligament.? Cystoscopy was performed to confirm ureteral patency with a 70 degree lens. The bladder and ureters were normal and bilateral ureteral efflux with pyridium was seen, first without and then with traction on the U-S ligament suspension sutures, confirming ureteral patency.? The large sponge was removed.?? Attention was then turned to the anterior vaginal wall. The anterior vaginal mucosa was grasped with Allis clamps and was injected with 10-20 cc of 0.5% lidocaine / epinephrine 1:200,000.? A midline incision was made with a scalpel, from the U-V junction to the apex. The vaginal mucosa was dissected off of the underlying pubocervical fascia until the sidewalls were reached.?? The bladder fascia was plicated with running 2-0 vicryl, and then the vaginal mucosa was plicated with horizontal mattress sutures of 2-0 vicryl. Excess anterior vaginal mucosa was trimmed and the incision was closed with 2-0 vicryl. ? The 2 Left U-S ligament suspension sutures were passed through the left side of the vaginal apex, approximately at the left apical sidewall at the tagged left utero-sacral ligament, then about 1 -2 cm medial. The same procedure was done on the Right side. The vaginal cuff was closed with 2 running, locked sutures of 0-vicryl. The U-S ligament suspension sutures were tied, elevating the vaginal apex several centimeters deep into the pelvis. Cystoscopy done again, With normal bladder, urethra, ureters, bilateral ureteral jets. The bladder was filled to 300 cc and a Crede maneuver was done to determine if there was leakage of fluid through the urethra. There was no leakage. Therefore there was no stress incontinence. Therefore there was no indication for a mid urethral sling. The scope was removed and the Simms catheter was reinserted. Sponge, needle and instrument count was correct.? The patient tolerated the procedure well and was taken to the recovery room in stable condition. Yoan Roy MD UroGynecology & Pelvic Reconstructive Surgery [place], [place]
--- NOTE | 2024-11-28 20:05 | PC.NURSE ---
Patient arrives from PACU at 1835 this evening. VSS, afebrile on RA. Slighly hypotensive but denies dizziness or n/v. She is able to turn in bed complete skin assessment. John in place. Ira pad with scant dry blood. Patient able to take ice chips. Continuous pulse ox, bed alarm, oriented to room, post op VS per protocol.
[2024-11-28] MEDS: ACETAMINOPHEN 325 MG TABLET 975 MG PO (20:26)
[2024-11-28] MEDS: OXYCODONE IR 5 MG TABLET PO (20:27)
[2024-11-28] MEDS: DOCUSATE 100 MG CAPSULE PO (20:27)
[2024-11-29 02:00] VITALS: BP 91/44; PULSE 89; RESP 18; TEMP 36.8; O2SAT 98
[2024-11-29] MEDS: ACETAMINOPHEN 325 MG TABLET 975 MG PO ×2 (02:54→10:47)
[2024-11-29 06:00] VITALS: BP 101/51; PULSE 63; RESP 18; TEMP 36.9; O2SAT 98
--- NOTE | 2024-11-29 08:41 | CM.DANOTE ---
Initial DCP Assessment Note Pt is a 58 yo female, resident of [place], now s/p OBGYN procedure by Dr Roy. [place] [facility] [place]: Dr Vines Payer: Hemanth PATEL Reviewed chart. Patient has been discharged this morning. Patient lives independently with spouse and family. Patient appears to be at her general physical and cognitive baseline, no barriers identified at this time to patient's safe discharge home w/family to assist; close outpatient f/u recommended. CM team will plan to follow clinical course closely in case any DC needs or concerns arise. MYRA Alonso Discharge Planning/Care Management CM Discharge Assessment Start: 11/28/24 13:44 Freq: Status: Active Protocol: Document 11/29/24 08:38 JOANA (Rec: 11/29/24 08:40 JOANA [id number]) Discharge Planning Assessment Assigned Distributed Generation Project Manager MYRA Ferrari DPOA/Assigned Designee Name Juancarlos Thomas, spouse Contact Information [phone] or [phone] Advance Directives? No History Provided By Patient,Medical Record Has Patient been admitted in last 30 No days? Prior Living Arrangements House Household Members spouse,children Type of transporation used prior to Drives own vehicle admit Independent with ADL's Yes Is patient alert and oriented? Yes Barriers to Discharge No Discharge Plan Home Transportation Arrangement Family Referrals Initiated None needed
[2024-11-29] MEDS: DOCUSATE 100 MG CAPSULE PO (09:05)
[2024-11-29] MEDS: IBUPROFEN 600 MG TABLET PO (09:19)
--- NOTE | 2024-11-29 10:52 | PC.NURSE ---
Addendum entered by Sharon Harper R.N. 11/29/24 13:31: After calling OBGYN office to schedule follow up void trial for patient. RN was informed that MD Fox would not be in the office Mon/ and was referred to Jacob Alexander. Sent an email with patient info and need per request for patient. Informed patient she should expect a call Monday to schedule and appointment on for void trial. She is escorted via w/chby DIRECTOR OF [employer] with all of her belongings to private vehicle for discharge home today with spouse at approximately 1155 a.m.. Original Note: Patient is A&OX4, VSS, afebrile on RA. She is able to tolerate a few bites of breakfast w/o n/v and ambulating to bathroom w/o dizziness. She had simms catheter removed this a.m. with voiding trial and had not yet felt the urge to void. MD Fox telephoned and patient attempted to void again. Per MD instructions after bladder scan this a.m. of 520 ml, she is unable to void and simms catheter is replaced. Per instructions from MD Fox patient instructed to call the OBGYN office to schedule another voiding trial in 3 days. RN called to schedule this for patient. She acknowledges already having picked up her discharge medications and no new medications are ordered.RN reviewed MD Fox specific 2 pages of discharge instructions with thepatient and she verbalizes understanding. She is given instructions on how to change leg bag to night bag and supplies provided.
== END 2024-11-29 11:55 | disposition home or self-care (01) ==
LOC: OR 13:38 → AC 13:44
PROVIDERS: PCP Family Medicine; Referring Provider Obstetrics & Gynecology Gynecology; Visit Provider Obstetrics & Gynecology Gynecology
PROC: (CPT 58260; principal; 2024-11-28 15:00)
DX: N81.2 Incomplete uterovaginal prolapse (principal); N32.81 Overactive bladder; N95.2 Postmenopausal atrophic vaginitis; N39.46 Mixed incontinence; N36.41 Hypermobility of urethra; N94.10 Unspecified dyspareunia; N83.8 Other noninflammatory disorders of ovary, fallopian tube and broad ligament
CPT/HCPCS: 57283; 58262; 57240; J0330; J0690; J1100; J1171; J2250; J2405; J2704; J3010; J3490

== ENCOUNTER → 2024-12-05 09:23 | Outpatient (CLI) | payer OTHER, SELFPAY ==
[2024-11-28 18:34] VITALS: BMI 24.9
[2024-12-05 09:58] LABS: Appearance Urine UA SL CLOUDY; Bilirubin Urine UA NEGATIVE (NEGATIVE); Color Urine UA YELLOW; Glucose Urine UA NEGATIVE (Negative); Ketones Urine UA NEGATIVE (NEGATIVE); Leukocyte Esterase Urine UA 2+ (NEGATIVE); Nitrite Urine UA POSITIVE (Negative); Occult Blood Urine UA 3+ (Negative); Protein Urine UA 2+ (Negative); Urobilinogen Urine UA 0.2 E.U./dL (0.2)
[2024-12-05 09:59] LABS: Urine Volume 10mL (spun)
[2024-12-05 10:01] LABS: RBC Urine >100/HPF (0-5/HPF); WBC Urine >100/HPF (0-5/HPF)
[2024-12-05 10:02] LABS: Bacteria Urine Many (>30); Culture Indicated Urine Specimen Cultured; Squamous Epithelial Cell Urine None Seen (0-5/HPF)
== END ==
PROVIDERS: PCP Family Medicine; Referring Provider Obstetrics & Gynecology Gynecology; Visit Provider Obstetrics & Gynecology Gynecology
DX: R39.15 Urgency of urination (principal)
CPT/HCPCS: 81001; 87077; 87086; 87186